=== PATIENT | male | born 1985 | race Two or more races ===

== ENCOUNTER 2020-08-18 09:54 | Outpatient (REF) | payer SELFPAY | END 2020-08-18 09:55 | disposition home or self-care (01) | LOC: HO.LAB 09:54 | PROVIDERS: Visit Provider Internal Medicine | DX: Z20.828 Contact with and (suspected) exposure to other viral communicable diseases (principal) | CPT/HCPCS: C9803; U0003 ==

== ENCOUNTER 2021-05-15 11:36 | Outpatient (REF) | payer OTHER, SELFPAY ==
[2021-05-15 13:17] LABS: COVID-19 Test Negative (Negative)
== END 2021-05-15 11:37 | disposition home or self-care (01) ==
LOC: HO.LAB 11:36
PROVIDERS: Visit Provider Internal Medicine
DX: Z20.822 Contact with and (suspected) exposure to COVID-19 (principal)
CPT/HCPCS: 36415; 87635; C9803

== ENCOUNTER 2024-01-11 10:23 | Emergency (ER) | payer SELFPAY ==
--- NOTE | ~2024-01-11 | CT_ITS ---
EXAMINATION: CT ABDOMEN AND PELVIS WITHOUT CONTRAST CLINICAL INFORMATION: Lower abdominal pain. COMPARISON: None available. TECHNIQUE: Multidetector volumetric imaging was performed from the superior aspect of the liver through the pubic symphysis. Sagittal and coronal reformatted images were obtained on the technologist's workstation. This CT examination was performed using dose optimization techniques as appropriate, variously including the following: *Automated exposure control *Adjustment of mA and/or kV according to patient size (this includes techniques or standardized protocols for targeted exams where dose is matched to indication/reason for exam; i.e. extremities or head) *Use of iterative reconstruction technique DLP: 448 mGy-cm FINDINGS: LUNG BASES: The visualized lung bases are unremarkable. LIVER, GALLBLADDER, AND BILIARY TREE: The noncontrast liver is normal in size and contour. No focal hepatic lesion or biliary ductal dilatation is present. The gallbladder is unremarkable with no evidence of radiopaque gallstones, gallbladder wall thickening, or obvious pericholecystic inflammatory changes. PANCREAS: Unremarkable. SPLEEN: Unremarkable. ADRENAL GLANDS: Unremarkable. KIDNEYS AND URETERS: The kidneys are symmetric in size. No hydronephrosis. No renal calculus. No perinephric stranding. BLADDER: Unremarkable. GASTROINTESTINAL TRACT: No small bowel obstruction. Appendix is within normal limits. Fluid distended small and large bowel loops. ABDOMINAL WALL: No significant hernia is appreciated. LYMPH NODES: No bulky lymphadenopathy. VASCULAR: Normal caliber abdominal aorta. PELVIC VISCERA: Unremarkable. OSSEOUS STRUCTURES: No destructive bone lesions. CT/CT abdomen pelvis wo IV con IMPRESSION: Fluid distended small and large bowel loops. This appearance can be seen in enterocolitis. Advise clinical correlation.
[2024-01-11 11:15] VITALS: BP 111/69; PULSE 103; RESP 18; TEMP 37; O2SAT 99; BMI 24.7
--- NOTE | 2024-01-11 11:15 | ED.GENADULT ---
HPI - General Adult General Chief complaint: Abdominal Pain Stated complaint: Back Pain Diarrhea ? Food Poisoning Time Seen by Provider: 01/11/24 20:38 Source: patient Mode of arrival: ambulatory Limitations: no limitations History of Present Illness HPI narrative: Patient reports sudden onset of diffuse abdominal pain at 02:00 that awoke him from his sleep. Pain progressed throughout the morning. He attempted to go to work in hopes that his symptoms would resolve but he felt they were only getting worse. Thus he came to the emergency department for evaluation. He states that he had a bowel movement while in the waiting room and his pain did improve some, he subsequently took Tylenol which he feels resolved the pain. He denies any nausea or vomiting. He denies any hematochezia or melena. Denies any history of similar pain in the past. Denies recent antibiotic usage, care admission, recent travel, known sick contacts. He did endorse during his initial triage that pain had been migrating towards his lower back though he denies at this time. Related Data Allergies Allergy/AdvReac Type Severity Reaction Status Date / Time No Known Allergies Allergy Verified 01/11/24 11:18 Review of Systems Review of Systems: Yes all other systems are reviewed and are negative [facility] Past Medical History Attestation statement: The following information was validated with the patient. Source: old records reviewed Social History Social History Advance Directives: No Advance Directives Information Provided: No Physical Exam ED Vital Signs: Vital Signs - 24 hr 01/11/24 11:15 01/11/24 16:18 01/11/24 20:25 Temperature 98.6 F 98.3 F 98.0 F Pulse Rate 103 H 85 70 Respiratory Rate 18 16 14 Blood Pressure 111/69 138/70 110/74 Pulse Oximetry 99 97 100 Oxygen Delivery Method Room Air Room Air 01/11/24 22:19 Temperature 98.0 F Pulse Rate 70 Respiratory Rate 14 Blood Pressure 110/74 Pulse Oximetry 100 Oxygen Delivery Method Room Air BMI result Body Mass Index 24.7 Appearance: Alert.?Oriented to person, place and time. No acute distress.?Normal affect. Eyes: Pupils equal, round and reactive to light.? ENT: Pharynx normal.?? Neck: Normal inspection.? Neck supple.?? CVS: Heart sounds normal. Normal heart rate and rhythm.? Pulses normal.?? Respiratory: No respiratory distress.? Lung sounds clear to auscultation bilaterally?? Abdomen: Soft and non-tender. Normoactive bowel sounds. No CVA tenderness Skin: Skin warm and dry.? Normal skin color.? Extremities: No lower extremity edema.? Neuro: Moves all extremities spontaneously. Sensation intact bilaterally. Ambulates with normal steady gait. Course Course Course Narrative: RME:?38 yo male here for eval of nausea and loose stools after eating chicken yesterday. Now endorses headache and myalgias (mainly in his lower back) which began upon arriving to work today. Denies fevers, vomiting, abdominal pain. Known sick contacts at work. labs, serology ordered Full HPI, ROS and PE to be performed by the primary ED provider. Medications Administered Discontinued Medications Generic Name Dose Route Start Last Admin Trade Name Mike PRN Reason Stop Dose Admin Acetaminophen 650 mg 01/11/24 16:21 01/11/24 16:23 Acetaminophen 325 Mg Tablet PO 01/11/24 16:22 650 mg ONCE ONE Administration Ketorolac Tromethamine 30 mg 01/11/24 21:36 01/11/24 21:40 Ketorolac Tromethamine 30 Mg/Ml Vial IM 01/11/24 21:37 30 mg ONCE ONE Administration Ondansetron HCl 4 mg 01/11/24 21:36 01/11/24 21:41 Ondansetron Odt 4 Mg Tab.Rapdis TRANSLINGU 01/11/24 21:37 4 mg ONCE ONE Administration Medical Decision Making Medical Decision Making [facility] Narrative: Patient is a 38-year-old male with no reported past medical history presenting to emergency department for evaluation of abdominal pain HPI. CT of the abdomen and pelvis was obtained prior to my assumption care which reveals evidence consistent with enterocolitis. Clinically he overall appears well, nontoxic, afebrile, without tachycardia. He is tolerating oral intake. Has had no episodes of diarrhea or loose stools. Had a formed bowel movement earlier this morning. Stool studies were ordered, but unfortunately unable to be obtained. CBC reveals leukocytosis with left shift, He was offered to receive IV fluids given mildly elevated BUN at 20 and creatinine of 1.0 with no baseline for comparison, he however declines in requests additional pain medication at this time for 3/10 diffuse abdominal discomfort, declines IV administration of medication. Reports he would like to be discharged home tonight so that he may go to work in the morning. Based on his physical examination I do not see indication that he needs to possible admission at this time for be held in the emergency department against we discussed strict return precautions and worrisome signs and symptoms that would warrant re-evaluation in the emergency department. All questions were answered. Stable for discharge. Differential Diagnosis Differential Diagnoses: The differential diagnosis associated with the presentation includes (Viral syndrome, gastroenteritis, IBS, suspect less likely IBD, obstruction, diverticulitis, appendicitis. No urogenital symptoms) Admission/Observation Consideration of admission/observation: Escalation of care including admission/observation considered (See narrative above) Lab Data MDM Lab Attestation statement: I reviewed the patient's lab results. (See narrative above) 01/11/24 11:26 01/11/24 11:26 Labs: Lab Results 01/11/24 Range/Units 11:26 WBC 14.7 H (4.8-10.8) X10*3/uL RBC 5.04 (4.60-5.80) X10*6/uL Hgb 15.1 (14.0-18.0) g/dl Hct 44.3 (42.0-52.0) % MCV 87.9 (80.0-98.0) fL MCH 30.0 (27.0-33.0) pg MCHC 34.1 (31.0-36.0) g/dl RDW 12.4 (11.0-16.0) % Plt Count 163 (160-400) X10*3/uL MPV 11.5 (9.4-12.4) fL Immature Gran % (Auto) 0.4 (0.0-0.4) % Neut % (Auto) 90.9 H (45-73) % Lymph % (Auto) 3.8 L (20-40) % [place] % (Auto) 4.5 (2-11) % Eos % (Auto) 0.3 (0-4) % Baso % (Auto) 0.1 (0-2) % Lymph # (Auto) 0.6 L (1.2-4.9) X10*3/uL [place] # (Auto) 0.7 (0.1-1.2) X10*3/uL Eos # (Auto) 0.0 (0.0-0.4) X10*3/uL Baso # (Auto) 0.0 (0.0-0.2) X10*3/uL Abs Immat Gran (auto) 0.06 H (0.00-0.03) X10*3/uL Absolute Neuts (auto) 13.3 H (2.0-8.3) x10*3/uL Absolute Nucleated RBC 0.000 (0.0-0.012) X10*3/uL Nucleated RBC % (auto) 0.0 (0.0-0.2) /100WBC Smear Tech's Comments VERIFIED Sodium 138 (135-145) mmol/L Potassium 4.1 (3.3-5.1) mmol/L Chloride 104 (96-108) mmol/L Carbon Dioxide 25 (22-29) mmol/L Anion Gap 13 (12-20) BUN 20 H (9-16) mg/dL Creatinine 1.00 (0.5-1.4) mg/dL Estim Creat Clear Calc 94.5 Estimated GFR > 60 Random Glucose 97 (60-115) mg/dL Calcium 9.1 (8.4-10.2) mg/dL Magnesium 1.9 (1.6-2.6) mg/dL Total Bilirubin 0.6 (0.0-1.0) mg/dL AST 30 (5-37) U/L ALT 31 (0-40) U/L Alkaline Phosphatase 98 (39-117) U/L Total Protein 8.7 H (6.5-8.0) g/dL Albumin 4.4 (3.5-5.0) g/dL Lipase 27 (8-78) U/L Influenza Type A (PCR) NEGATIVE (Negative) Influenza Type B (PCR) NEGATIVE (Negative) RSV RNA Qual (PCR) NEGATIVE (Negative) SARS-CoV-2 RNA (RT-PCR) NEGATIVE (Negative) Radiology Impression Discussion of test interpretation with radiology: I have reviewed the radiologist's reading. Radiologist Impression: CT/CT abdomen pelvis wo IV con IMPRESSION: Fluid distended small and large bowel loops. This appearance can be seen in enterocolitis. Advise clinical correlation. Prescription Management I considered prescription management with: Pain Medication Critical Care Time Critical Care Time Critical Care Time: Yes Total Critical Care Time: 35 Attestation: I personally attest to this critical care time spent taking care of the patient exclusive of all other billable procedures was approximately 35 minutes including initial evaluation of patient, ordering tests,CT interpretation, pain management, documentation, re-evaluation. Discharge Plan Discharge Clinical Impression: Abdominal pain Patient Disposition: Home, Self-Care Instructions: Colitis (ED) Additional Instructions: As discussed, the CT scan of your abdomen shows fluid within urine testing. This can be seen at times of infection. At this time he did not express experiencing any diarrhea, nausea, vomiting. Your pain had significantly improved. Please continue to monitor symptoms especially over the next few days, if you develop severe worsening pain, fevers, chills, nausea, vomiting, bloody or dark stools, constipation with pain, then you should be re-evaluated. Referrals: Physician,None [Primary Care Provider] - Stand Alone Forms: Work/School Release Interventions: ED Discharge Assessment Last Done: 01/11/24 22:19 Discharge Date/Time: 01/11/24 22:20 Print Language: Mexican
[2024-01-11 11:33] LABS: Basophils Percent Auto 0.1 % (0-2); Eosinophils Percent Auto 0.3 % (0-4); Hematocrit 44.3 % (42.0-52.0); Hemoglobin 15.1 g/dl (14.0-18.0); Imm Gran Abs Auto 0.06 X10*3/uL (0.00-0.03); Imm Gran Pct Auto 0.4 % (0.0-0.4); Lymphocytes Absolute Auto 0.6 X10*3/uL (1.2-4.9); Lymphocytes Percent Auto 3.8 % (20-40); MANUAL DIFF FLAG SCAN; Mean Corpuscular HGB Conc 34.1 g/dl (31.0-36.0); Mean Corpuscular Volume 87.9 fL (80.0-98.0); Mean Platelet Volume 11.5 fL (9.4-12.4); Monocytes Absolute Auto 0.7 X10*3/uL (0.1-1.2); Monocytes Percent Auto 4.5 % (2-11); Neutrophils Absolute Auto 13.3 x10*3/uL (2.0-8.3); Neutrophils Percent Auto 90.9 % (45-73); Platelet Count 163 X10*3/uL (160-400); Red Blood Count 5.04 X10*6/uL (4.60-5.80); Red Cell Distribution Width 12.4 % (11.0-16.0); SCAN SMEAR FLAG 1; White Blood Count 14.7 X10*3/uL (4.8-10.8)
[2024-01-11 11:50] LABS: Alanine Aminotransferase 31 U/L (0-40); Albumin Level 4.4 g/dL (3.5-5.0); Alkaline Phosphatase 98 U/L (39-117); Anion Gap 13 (12-20); Aspartate Amino Transferase 30 U/L (5-37); Bilirubin Total 0.6 mg/dL (0.0-1.0); Blood Urea Nitrogen 20 mg/dL (9-16); Calcium 9.1 mg/dL (8.4-10.2); Carbon Dioxide 25 mmol/L (22-29); Chloride 104 mmol/L (96-108); Creatinine Clr Calc Pharmacy 94.5; Estimated Glomerular Filt Rate > 60; Glucose Random 97 mg/dL (60-115); Lipase 27 U/L (8-78); Magnesium 1.9 mg/dL (1.6-2.6); Potassium 4.1 mmol/L (3.3-5.1); Sodium 138 mmol/L (135-145); Total Protein 8.7 g/dL (6.5-8.0)
[2024-01-11 12:15] LABS: Influenza A PCR NEGATIVE (Negative); Influenza B PCR NEGATIVE (Negative); Resp Syncy Virus RNA Qual PCR NEGATIVE (Negative); SARS COV2 PCR INHOUSE NEGATIVE (Negative)
[2024-01-11 12:20] LABS: SLIDE REVIEW VERIFIED
[2024-01-11 16:18] VITALS: BP 138/70; PULSE 85; RESP 16; TEMP 36.8; O2SAT 97
[2024-01-11] MEDS: Acetaminophen 325 MG TABLET 650 MG PO (16:23)
[2024-01-11 20:25] VITALS: BP 110/74; PULSE 70; RESP 14; TEMP 36.7; O2SAT 100
[2024-01-11] MEDS: Ketorolac Tromethamine 30 MG/ML VIAL IM (21:40)
[2024-01-11] MEDS: Ondansetron ODT 4 MG TAB.RAPDIS TRANSLINGU (21:41)
[2024-01-11 22:19] VITALS: BP 110/74; PULSE 70; RESP 14; TEMP 36.7; O2SAT 100
== END 2024-01-11 22:20 | disposition home or self-care (01) ==
PROVIDERS: Physician Assistant Medical; Emergency Provider Internal Medicine
DX: M54.50 Low back pain, unspecified (principal); R10.2 Pelvic and perineal pain; Z79.899 Other long term (current) drug therapy; Z11.52 Encounter for screening for COVID-19; Z20.822 Contact with and (suspected) exposure to COVID-19
CPT/HCPCS: 0241U; 74176; 80053; 83690; 83735; 85025; 96372; 99284; J1885